=== PATIENT | female | born 1950 | race Caucasian/White ===

== ENCOUNTER 2017-05-05 11:55 | Emergency (ER) | payer BC ==
--- NOTE | 2017-05-05 13:45 | CT ---
CT CERVICAL SPINE: Date: 05/05/17 CT of the cervical spine was done following trauma. Axial slices were acquired, and coronal and sagit melanie reconstructions were done. FINDINGS: No fracture, dislocation, or acute bony change seen. The C1 to dens distance is normal and the soft t issues are normal in thickness. There is some mild disc space narrowing at C6-C7. Findings by level follow: C1-C2: Unremarkable. C2-C3: Mild right foraminal stenosis. Significant right facet arthritis. C3-C4: Significant left facet arthritis. Mild left foraminal narrowing due to osteophytes. C4-C5: Mild facet arthritis, right greater than left, without significant stenosis. C5-C6: No acute findings. C6-C7: No acute findings. C7-T1: No acute findings. T1-T2: No acute findings. T2-T3: No acute findings. The lung apices are clear. No sign of pneumothorax. IMPRESSION: No acute traumatic findings. POS: [facility]
== END 2017-05-05 13:35 | disposition home or self-care (01) ==
LOC: BURERS 11:55
DX: S13.4XXA Sprain of ligaments of cervical spine, initial encounter (principal); E78.5 Hyperlipidemia, unspecified; I10 Essential (primary) hypertension; F41.9 Anxiety disorder, unspecified; Z79.899 Other long term (current) drug therapy; V43.62XA Car passenger injured in collision with other type car in traffic accident, initial encounter
CPT/HCPCS: 72125; G0390

== ENCOUNTER 2020-02-21 08:55 | Emergency (ER) | payer MEDICARE ==
[2020-02-21] MEDS ORDERED: Ketorolac Tromethamine 30 MG/ML VIAL ONE (09:30)
[2020-02-21 09:34] LABS: #Basophils 0.1 thou/uL (0.0-0.2); #Eosinphils 0.4 thou/uL (0.0-0.7); #Lymphocytes 2.2 thou/uL (1.20-3.40); #Monocytes 0.6 thou/uL (0.11-0.59); #Neutrophils 5.2 thou/uL (1.40-6.50); %Basophils 1.4 % (0.0-1.0); %Eosinophils 4.7 % (0.0-10.0); %Monocytes 6.9 % (0.0-10.0); %Neutrophils 61.1 % (42.0-75.0); Hemoglobin 14.8 g/dL (12.0-16.0); Mean Corpuscular HGB CONC 31.7 g/dL (32.0-36.0); Mean Corpuscular Hemoglobin 28.9 pg (27.0-31.0); Mean Corpuscular Volume 91.2 fL (78.0-98.0); Mean Platelet Volume 7.7 fL (7.4-10.4); Platelet Count 326 thou/uL (130-400); RBC Distribution Width 12.1 % (11.5-14.5); Red Blood Cell (RBC) Count 5.12 mill/uL (4.20-5.40); White Blood Cell (WBC) Count 8.4 thou/uL (4.8-10.8)
[2020-02-21 09:48] LABS: Bilirubin Negative (Negative); Blood, Urine Moderate (Negative); Clarity Clear (Clear); Glucose, Urine (Dipstick) Negative (Negative); Ketone, Urine Negative (Negative); Leukocyte Trace (Negative); Nitrite Negative (Negative); Protein, Urine (Dipstick) Negative (Neg-Trace); Urobilinogen 0.2 mg/dL (Less than 2); pH, Urine 7.5 (5.0-9.0)
[2020-02-21 09:49] LABS: Bacteria/HPF Rare-Few HPF (None Seen); Squamous Epithelial 0-3 HPF (0-3); WBC/HPF 0-3 HPF (0-3)
[2020-02-21 09:50] LABS: ALT (SGPT) 33 U/L (8-55); AST (SGOT) 22 U/L (5-34); Albumin 4.7 g/dL (3.4-4.8); Alkaline Phosphatase 64 U/L (40-110); Anion Gap 17 mmol/L (10-20); BUN (Urea Nitrogen) 39 mg/dL (9.8-20.1); Bilirubin, Total 0.5 mg/dL (0.2-1.2); Calc. Creatinine Clearance 0 mL/min (70-130); Calcium 9.8 mg/dL (7.8-10.44); Carbon Dioxide 23 mmol/L (23-31); Chloride 104 mmol/L (98-107); Globulin 3.1 g/dL (2.4-3.5); Glucose 101 mg/dL (80-115); Potassium 4.3 mmol/L (3.5-5.1); Protein, Total 7.8 g/dL (6.0-8.3); Sodium 140 mmol/L (136-145)
[2020-02-21] MEDS ORDERED: Morphine 2 MG/ML SYRINGE ONE ×2 (09:58→10:20)
[2020-02-21] MEDS ORDERED: Ondansetron PF 4 MG/2 ML Vial ONE (09:59)
--- NOTE | 2020-02-21 10:44 | CT ---
CT Stone Protocol: 02/21/2020 9:48 AM HISTORY: Left flank pain and left lower quadrant abdominal pain COMPARISON: None. TECHNIQUE: Multiple contiguous axial images were obtained and a CT of the abdomen and pelvis without IV contrast . Coronal and sagittal reformats were performed. FINDINGS: This examination is limited for the evaluation of solid organs and vascular structures due to the lac k of intravenous contrast. Lower Chest: within normal limits. Abdomen: Liver: Diffuse fatty infiltration. Bile Ducts: Normal caliber. Gallbladder: Dependent calcified gallstones. Pancreas: within normal limits. Spleen: within normal limits. Adrenals: within normal limits. Kidneys: Mild to moderate left hydronephrosis secondary to the ureteral calcification. There are nono bstructing calcifications measuring up to 2 mm in size. Pelvis: Reproductive Organs: Status post hysterectomy. Ureters: 6-7 mm calcification in the proximal left ureter with dilatation of the proximal ureter Bladder: within normal limits. Bowel: Normal caliber. Normal appendix. Scattered diverticula in the colon. Mesenteric Lymph Nodes: No enlarged mesenteric lymph nodes. Peritoneum: No ascites or free air, no fluid collection. Vessels: Normal caliber aorta Retroperitoneum: within normal limits. Abdominal Wall: within normal limits. Bones: Degenerative changes in the spine. IMPRESSION: 1. Proximal left ureteral calcification with mild to moderate left hydronephrosis 2. Nonobstructing left renal calcifications 3. Diverticulosis 4. Fatty liver 5. Cholelithiasis
[2020-02-21] MEDS ORDERED: Fentanyl 100 MCG/2 ML VIAL ONE ×2 (10:54→11:37)
== END 2020-02-21 13:24 | disposition short-term general hospital (02) ==
LOC: BURERS 08:55
DX: N13.2 Hydronephrosis with renal and ureteral calculous obstruction (principal); E78.5 Hyperlipidemia, unspecified; E78.00 Pure hypercholesterolemia, unspecified; I10 Essential (primary) hypertension; M19.90 Unspecified osteoarthritis, unspecified site; F41.9 Anxiety disorder, unspecified
CPT/HCPCS: 36415; 74176; 80053; 81003; 81015; 85025; 96374; 96375; 96376; J1885; J2270; J2405; J3010

== ENCOUNTER 2020-11-06 17:38 | Emergency (ER) | payer MEDICARE ==
[2020-11-07 17:57] LABS: SARS-CoV-2 PCR by NAA Not Detected (NotDetected)
== END 2020-11-06 18:45 | disposition home or self-care (01) ==
LOC: BURERS 17:38
DX: B34.9 Viral infection, unspecified (principal); Z20.822 Contact with and (suspected) exposure to COVID-19; I10 Essential (primary) hypertension
CPT/HCPCS: 87804; 99283; U0003; U0005